=== PATIENT | female | born 1975 | race African-American/Black ===

== ENCOUNTER 2023-06-26 16:52 | Inpatient (IN) | payer OTHER ==
[2023-06-26] MEDS ORDERED: ACETAMINOPHEN 1000 MG/100 ML BAG IVPB ONE (17:43)
[2023-06-26] MEDS ORDERED: ACETAMINOPHEN INJECTION 100 ML IVPB ONE (17:43)
[2023-06-26] MEDS ORDERED: SODIUM CHLORIDE 0.9% 500 ML INFUS.BAG IV ONE (17:43)
[2023-06-26 18:26] LABS: HEMATOCRIT 13.1 % (32.4-45.2); MCHC 29.7 g/dl (32.0-36.0); MEAN CELL VOLUME 61.8 fl (80-96); MEAN PLT VOLUME 8.4 fl (7.5-11.1); PLATELET COUNT 225 10^3/uL (134-434); RBC 2.11 M/mm3 (3.60-5.2); RDW 20.7 % (11.6-15.6); WHITE BLOOD COUNT 3.6 K/mm3 (4.0-10.0)
[2023-06-26 18:34] LABS: INR 1.18 (0.83-1.09); PROTHROMBIN TIME (PATIENT) 13.7 SEC (9.7-13.0)
[2023-06-26 18:35] LABS: MCH 18.4 pg (25.7-33.7)
[2023-06-26 18:36] LABS: ACTIVATED PTT 40.6 SECONDS (25.2-36.5)
[2023-06-26 18:38] LABS: HEMOGLOBIN 3.9 GM/dL (10.7-15.3)
[2023-06-26 18:41] LABS: CHLORIDE 108 mmol/L (98-107); SODIUM 138 mmol/L (136-145)
[2023-06-26 18:42] LABS: BLOOD UREA NITROGEN 9.1 mg/dL (7-18)
[2023-06-26 18:44] LABS: ALBUMIN 3.3 g/dl (3.4-5.0); ANION GAP 5 MMOL/L (8-16); CO2 25 mmol/L (21-32); GLUCOSE,RANDOM 91 mg/dL (74-106); MAGNESIUM 2.2 mg/dL (1.8-2.4)
[2023-06-26 18:46] LABS: SGPT/ALT 12 U/L (13-61)
[2023-06-26 18:47] LABS: CREATININE 0.7 mg/dL (0.55-1.3); SGOT/AST 11 U/L (15-37)
[2023-06-26 18:48] LABS: BILIRUBIN,TOTAL 0.2 mg/dL (0.2-1)
[2023-06-26 18:49] LABS: ALK PHOS 61 U/L (45-117)
[2023-06-26 19:08] LABS: ANISOCYTOSIS 2+; MACROCYTOSIS 0
[2023-06-26 20:23] LABS: VENOUS BASE EXCESS -3.9 mmol/L (-2-2); VENOUS O2 SATURATION 49.8 % (70-80); VENOUS PCO2 37.7 mmHg (38-52); VENOUS PH 7.367 (7.310-7.410)
[2023-06-26 20:25] LABS: EPI CELLS 29 /uL (0-25.1); HYALINE CASTS 1 /uL (0-3.1); PH,URINE 7.5 (5.0-8.0); URINE APPEARANCE CLEAR; URINE BACTERIA 109 /uL (0-1359); URINE BILIRUBIN NEGATIVE (NEGATIVE); URINE COLOR RED; URINE GLUCOSE (UA) NEGATIVE (NEGATIVE); URINE KETONE NEGATIVE (NEGATIVE); URINE LEUK ESTERASE 1+ (NEGATIVE); URINE NITRITE NEGATIVE (NEGATIVE); URINE PROTEIN 2+ (NEGATIVE); URINE RBC 9569 /uL (0-23.9); URINE UROBILINOGEN 0.2 mg/dL (0.2-1.0); URINE WBC 64 /uL (0-25.8)
[2023-06-26 21:15] LABS: LACTIC ACID 2.6 mmol/L (0.4-2.0)
[2023-06-26] MEDS ORDERED: ATENOLOL 25 MG TABLET (FP) PO ONE (23:04)
[2023-06-26 23:20] LABS: ERYTHROCYTE SEDIMENTATION RATE > 140 mm/hr (0-20)
[2023-06-27] MEDS ORDERED: ACETAMINOPHEN 325 MG TABLET (FP) PO PRN (01:54)
[2023-06-27 02:02] VITALS: BMI 30.2
[2023-06-27 07:34] LABS: HEMATOCRIT 21.4 % (32.4-45.2); MCH 22.4 pg (25.7-33.7); MCHC 31.2 g/dl (32.0-36.0); MEAN CELL VOLUME 71.7 fl (80-96); MEAN PLT VOLUME 8.2 fl (7.5-11.1); PLATELET COUNT 207 10^3/uL (134-434); RBC 2.99 M/mm3 (3.60-5.2); RDW 26.3 % (11.6-15.6); WHITE BLOOD COUNT 4.3 K/mm3 (4.0-10.0)
[2023-06-27 07:49] LABS: HEMOGLOBIN 6.7 GM/dL (10.7-15.3)
[2023-06-27 07:55] LABS: POTASSIUM 3.6 mmol/L (3.5-5.1)
[2023-06-27 07:57] LABS: CALCIUM 8.3 mg/dL (8.5-10.1)
[2023-06-27 07:58] LABS: ALBUMIN 3.3 g/dl (3.4-5.0); BLOOD UREA NITROGEN 8.2 mg/dL (7-18)
[2023-06-27 07:59] LABS: MAGNESIUM 2.1 mg/dL (1.8-2.4)
[2023-06-27 08:00] LABS: BILIRUBIN,DIRECT 0.2 mg/dL (0.0-0.2); CREATININE 0.7 mg/dL (0.55-1.3); PHOSPHOROUS 3.1 mg/dL (2.5-4.9)
[2023-06-27 08:02] LABS: TOT PROT 7.8 g/dl (6.4-8.2)
[2023-06-27 08:03] LABS: BILIRUBIN,TOTAL 0.7 mg/dL (0.2-1)
[2023-06-27] MEDS: ATENOLOL 25 MG TABLET (FP) PO SCH (09:34)
[2023-06-27] MEDS: medroxyPROGESTERone ACET 5 MG TABLET PO SCH (14:49)
[2023-06-27 18:44] LABS: HEMATOCRIT 25.7 % (32.4-45.2); HEMOGLOBIN 8.4 GM/dL (10.7-15.3); MCH 23.7 pg (25.7-33.7); MCHC 32.5 g/dl (32.0-36.0); MEAN CELL VOLUME 73.1 fl (80-96); MEAN PLT VOLUME 8.2 fl (7.5-11.1); PLATELET COUNT 191 10^3/uL (134-434); RBC 3.52 M/mm3 (3.60-5.2); RDW 25.3 % (11.6-15.6); WHITE BLOOD COUNT 4.9 K/mm3 (4.0-10.0)
[2023-06-28] MEDS ORDERED: FERROUS SO4 325 MG TABLET (FP) PO SCH (08:00)
[2023-06-28 09:07] LABS: MCH 24.1 pg (25.7-33.7); MCHC 33.3 g/dl (32.0-36.0); MEAN CELL VOLUME 72.5 fl (80-96); MEAN PLT VOLUME 8.8 fl (7.5-11.1); PLATELET COUNT 179 10^3/uL (134-434); RBC 3.31 M/mm3 (3.60-5.2); RDW 24.6 % (11.6-15.6); WHITE BLOOD COUNT 4.1 K/mm3 (4.0-10.0)
[2023-06-28 09:24] LABS: POTASSIUM 3.7 mmol/L (3.5-5.1)
[2023-06-28] MEDS: medroxyPROGESTERone ACET 5 MG TABLET PO SCH (09:26)
[2023-06-28] MEDS: ATENOLOL 25 MG TABLET (FP) PO SCH (09:26)
[2023-06-28 09:39] LABS: BLOOD UREA NITROGEN 10.1 mg/dL (7-18); CALCIUM 8.2 mg/dL (8.5-10.1)
[2023-06-28 09:41] LABS: ALBUMIN 3.2 g/dl (3.4-5.0)
[2023-06-28 09:44] LABS: CREATININE 0.7 mg/dL (0.55-1.3)
[2023-06-28 09:45] LABS: BILIRUBIN,TOTAL 0.6 mg/dL (0.2-1); TOT PROT 7.8 g/dl (6.4-8.2)
[2023-06-28] MEDS ORDERED: IRON SUCROSE INJECTION 200 MG in SODIUM CHLORIDE 90 ML IVPB ONE (12:00)
[2023-06-28 14:11] VITALS: BP 113/61; PULSE 72; RESP 17; TEMP 98.1
== END 2023-06-28 18:05 | disposition home or self-care (01) | DRG 663 ==
LOC: JER 16:52 → JERBED 22:27 → J4W 06-27 01:49
PROVIDERS: ADMIT Internal Medicine; ATTEND Internal Medicine
PROC: 30233N1 Transfusion of Nonautologous Red Blood Cells into Peripheral Vein, Percutaneous Approach (ICD-10-PCS; principal; 2023-06-26)
DX: D62 Acute posthemorrhagic anemia (principal); D25.9 Leiomyoma of uterus, unspecified; I10 Essential (primary) hypertension; N92.0 Excessive and frequent menstruation with regular cycle; E87.20 Acidosis, unspecified; E05.90 Thyrotoxicosis, unspecified without thyrotoxic crisis or storm; E04.8 Other specified nontoxic goiter; D50.9 Iron deficiency anemia, unspecified
CPT/HCPCS: 0241U-QW; 36415; 36430; 70491-TC; 71046-TC-FY; 71260-TC; 76830-TC; 80053; 81003; 82248; 82728; 82803; 83540; 83550; 83605; 83735; 84100; 84439; 84443; 84445; 84466; 84703; 85025; 85027; 85045; 85610; 85651; 85730; 86140; 86376; 86800; 86850; 86900; 86901; 86922; 87040; 87086; 93005; 93010; 99285-25; J1756; P9058; Q9967

== ENCOUNTER 2023-09-21 10:21 | Observation (INO) | payer OTHER ==
[2023-09-21 12:40] LABS: BASO % 1.4 % (0-2.0); EOS % 0.7 % (0-4.5); HEMATOCRIT 20.1 % (32.4-45.2); LYMPH % 12.4 % (8-40); MCH 27.2 pg (25.7-33.7); MCHC 30.8 g/dl (32.0-36.0); MEAN CELL VOLUME 88.2 fl (80-96); MEAN PLT VOLUME 8.3 fl (7.5-11.1); MONO % 5.1 % (3.8-10.2); NEUT % 80.4 % (42.8-82.8); PLATELET COUNT 296 10^3/uL (134-434); RBC 2.28 M/mm3 (3.60-5.2); RDW 16.6 % (11.6-15.6); WHITE BLOOD COUNT 5.4 K/mm3 (4.0-10.0)
[2023-09-21 12:50] LABS: HEMOGLOBIN 6.2 GM/dL (10.7-15.3)
[2023-09-21 12:54] LABS: POTASSIUM 5.2 mmol/L (3.5-5.1)
[2023-09-21 12:58] LABS: ALBUMIN 3.2 g/dl (3.4-5.0); CALCIUM 8.8 mg/dL (8.5-10.1)
[2023-09-21 13:02] LABS: BILIRUBIN,TOTAL 0.2 mg/dL (0.2-1)
[2023-09-21 13:04] LABS: TOT PROT 8.3 g/dl (6.4-8.2)
[2023-09-21 13:07] LABS: BLOOD UREA NITROGEN 7.6 mg/dL (7-18); CREATININE 0.8 mg/dL (0.55-1.3)
[2023-09-21 17:39] VITALS: BMI 29.0
[2023-09-21 20:31] LABS: BASO % 0.5 % (0-2.0); EOS % 0.9 % (0-4.5); HEMATOCRIT 24.9 % (32.4-45.2); HEMOGLOBIN 7.9 GM/dL (10.7-15.3); MCH 27.7 pg (25.7-33.7); MCHC 31.8 g/dl (32.0-36.0); MEAN PLT VOLUME 8.4 fl (7.5-11.1); MONO % 6.1 % (3.8-10.2); NEUT % 76.5 % (42.8-82.8); PLATELET COUNT 284 10^3/uL (134-434); RBC 2.86 M/mm3 (3.60-5.2); RDW 16.1 % (11.6-15.6)
[2023-09-21] MEDS ORDERED: FERROUS SO4 325 MG TABLET (FP) PO SCH (22:00)
[2023-09-21] MEDS ORDERED: DOCUSATE SODIUM 100 MG CAPSULE (FP) PO SCH (22:00)
[2023-09-21 23:00] VITALS: BP 144/88; PULSE 83; RESP 20; TEMP 98.2
[2023-09-22] MEDS ORDERED: ATENOLOL 25 MG TABLET (FP) PO SCH (10:00)
== END 2023-09-21 22:35 | disposition home or self-care (01) ==
LOC: JER 10:21 → JERBED 13:02 → J7W 17:10
PROVIDERS: ADMIT Internal Medicine; ATTEND Internal Medicine
PROC: 30233N1 Transfusion of Nonautologous Red Blood Cells into Peripheral Vein, Percutaneous Approach (ICD-10-PCS; principal; 2023-09-21)
DX: D50.0 Iron deficiency anemia secondary to blood loss (chronic) (principal); E05.90 Thyrotoxicosis, unspecified without thyrotoxic crisis or storm
CPT/HCPCS: 36415; 36430; 80053; 82728; 83540; 83550; 84443; 84703; 85025; 86850; 86900; 86901; 86922; 93005; 93010; 99285-25; G0378; P9038; P9058